=== PATIENT | male | born 1965 | race Caucasian/White ===

== ENCOUNTER 2025-03-25 07:58 | Outpatient (CLI) | payer OTHER, SELFPAY ==
--- OUTSIDE RECORDS SUMMARY | 2025-03-25 08:04 | XMS_ITS | Clinical Summary ---
Author Organization [facility] Address [address] [place] [address] Care Team Providers Care Size Painter Name Role Phone Flaco Peacock MD Primary Care Provider [phone] Allergies No known active allergies Immunizations Immunization Administration Dates Next Due Fluarix Quadrivalent Prefilled Syringe 6 Social History Tobacco Use Types Packs/Day Years Used Date Smoking Tobacco: Never Assessed Sex and Gender Information Value Date Recorded Sex Assigned at Not on file Legal Sex Male 5:20 PM EST Gender Identity Not on file Sexual Orientation Not on file Plan of Treatment Not on file Medical Devices Not on file Care Teams Size Painter Relationship Specialty Start Date End Date Flaco Peacock MD PCP - General Family Medicine 03/08/16
--- OUTSIDE RECORDS SUMMARY | 2025-03-25 08:04 | XMS_ITS | Clinical Summary ---
Author Organization [facility] Address [address] [place] [id number] Care Team Providers Care Generating Station Mechanic Name Role Phone Flaco Peacock MD Primary Care Provider [phone] Allergies No known active allergies Medications Adalimumab (Humira Pen) 40 MG/0.8ML Pen-injector Kit Inject 40 mg under the skin into the appropriate area as directed Every 14 (Fourteen) Days. 2 each 7 3 Active leflunomide (ARAVA) 10 MG tablet Take 1 tablet (10 mg) by mouth 1 (one) time each day. 90 tablet 1 07/10/2023 7:42 AM EDT 3 Active atorvastatin (LIPITOR) 20 MG tablet Take 1 tablet by mouth Daily. 30 tablet 07/10/2023 7:42 AM EDT 4 Active levothyroxine (Euthyrox) 25 MCG tablet Take 1 tablet by mouth Every Morning Before Breakfast. 30 tablet 3 4 Active omeprazole (priLOSEC) 40 MG capsule Take 1 capsule by mouth 2 (Two) Times a Day. 60 capsule 07/25/2023 11:14 AM EDT 4 Active Active Problems Problem Noted Date Diagnosed Date Rheumatoid arthritis with rheumatoid factor 11/14 Social History Tobacco Use Types Packs/Day Years Used Date Smoking Tobacco: Never Assessed Abuse Screen Answer Date Recorded Unsafe at Home or Work/School Not on file Feels Threatened by Someone? Not on file 12/2022 Does Anyone Keep You from Co ntacting Others or Doint Things Outside the Home? Not on file 01/22/2023 Physical Sign of Abuse Present Not on file 1 Housing Stability Answer Date Recorded Current Living Arrangements Not on file 12/2022 Potentially Unsafe Housing Conditions Not on farhad e 01/22/2023 Family and Community Support Answer Cory e Recorded Help with Day-to-Day Activities Not on file 01/22/2023 Lonely or Isolated Not on file 01/22/2023 Employment Answer Date Recorded Do you want help finding or keeping work or a halie b? Not on file 01/22/2023 Disabilities Answer Date Recorded Concentrating, Remembering, or Making Decisions Difficulty Not on file 01/22/2023 Doing Errands Independently Difficulty Not on fi le 01/22/2023 Education Answer Date Recorded Help with school or training? Not on file Preferred Language Not on file 01/22/2023 Sex and Gender Information Value Date Recorded Sex Assigned at Not on file Legal Sex Male 12:03 PM EDT Gender Identity Not on file Sexual Orientation Not on file Last Filed Vital Signs Vital Sign Reading Time Taken Comments Blood Pressure 134/95 04/24/2021 11:14 AM EST Pulse 81 04/24/2021 11:14 AM EST Temperature 37.5 C (99.5 F) 04/24/2021 11:14 AM EST Respiratory Rate 16 04/24/2021 11:14 AM EST Oxygen Saturation 95% 04/24/2021 11:14 AM EST Inhaled Oxygen Concentration - - Weight 95.3 kg (210 lb) 04/24/2021 11:14 AM EST Height 170.2 cm (5' 7 ) 04/24/2021 11:14 AM EST Body Mass Index 32.89 04/24/2021 11:14 AM EST Plan of Treatment Health Maintenance Due Date Last Done Comments COLOGUARD 11/21/2011 COLON CANCER SCREENING 5 YEAR SIGMOIDOSCOPY 11/21/2011 COLONOSCOPY 11/21/2011 COLORECTAL CANCER SCREENING 11/21/2011 CT COLONOGRAPHY 11/21/2011 FECAL OCCULT BLOOD TEST 11/21/2011 FIT Testing (1 year) 11/21/2011 Pneumococcal Vaccine 50+ (1 of 1 - PCV) 2016 ZOSTER VACCINE (1 of 2) 2016 ANNUAL PHYSICAL 04/25/2021 INFLUENZA VACCINE 11/14/2024 03/08/2016 TDAP/TD VACCINES (2 - Td or Tdap) 08/12/2031 022 HEPATITIS C SCREENING Completed 12/15/2021 Goals Goal Patient Goal Type Associated Problems Recent Progress Patient-Stated? Author Specialty Pharmacy General Goal General No Mynor Colby RPH Note: A reduction of flares in joints and on the skin by 50% Increase in mobility and quality of life, with a decrease in body stiffness Insurance [facility] [place] [address] Care Teams Generating Station Mechanic Relationship Specialty Start Date End Date Flaco Peacock MD PCP - General Family Medicine 10/22/18
--- OUTSIDE RECORDS SUMMARY | 2025-03-25 08:05 | XMS_ITS | Referral Summary ---
Author Organization [facility] ([place], [place], [place], [place], [place]) Address [address] [place] [address] Care Team Providers Care Family And Consumer Sciences Professor Name Role Phone Unavailable Primary Care Provider Unavailabl e Allergies No known active allergies Medications atorvastatin (LIPITOR) 20 MG tablet Take 1 tablet (20 mg total) by mouth daily. Active levothyroxine (SYNTHROID, LEVOTHROID) 25 MCG tablet Take 1 tablet (25 mcg total) by mouth Every morning on an empty stomach. Active Social History Tobacco Use Types Packs/Day Years Used Date Smoking Tobacco: Never Smokeless Tobacco: Current Chew Tobacco Cessation:Ready to Q uit: No; Counseling Given: Yes Alcohol Use Standard Drinks/Week Comments Yes 2 (1 standard drink = 0.6 oz pur e alcohol) Food Insecurity Answer Date Recorded Food run out past 12 months Not on file 12/15 Food did not last past 12 months Not on file 01/01/2024 Employment Answer Date Recorded Help finding and keeping a job Not on file 0 01/01/2024 Family and Community Support Answer Cory e Recorded Help with Day to Day Activities Not on file 01/01/2024 Feeling Lonely or Isolated Not on file 12/31 Educational Attainment Answer Date Ole rded Speak language other than American at home Not on file 01/01/2024 Want help with school or training Not on file 01/01/2024 Substance Use Answer Date Recorded Used prescription meds for non-medical reasons N ot on file 01/01/2024 Used illegal drugs past 12 months Not on file 01/01/2024 Sex and Gender Information Value Date Recorded Sex Assigned at Not on file Legal Sex Male 1:28 PM CDT Gender Identity Not on file Sexual Orientation Not on file Last Filed Vital Signs Vital Sign Reading Time Taken Comments Blood Pressure 150/84 01/08/2024 3:01 PM EDT Pulse 70 01/08/2024 3:01 PM EDT Temperature 36.9 C (98.4 F) 01/01/2024 1:52 PM EDT Respiratory Rate 16 01/01/2024 1:52 PM EDT Oxygen Saturation 97% 01/08/2024 3:01 PM EDT Inhaled Oxygen Concentration - - Weight 93.3 kg (205 lb 9.6 oz) 01/08/2024 3:01 P M EDT Height 170.2 cm (5' 7 ) 01/08/2024 3:01 PM EDT Body Mass Index 32.2 01/08/2024 3:01 PM EDT Plan of Treatment Not on file Insurance BLUE CROSS/BLUE SHIELD
--- OUTSIDE RECORDS SUMMARY | 2025-03-25 08:05 | XMS_ITS | Clinical Summary ---
Author Organization [employer] ([place], [place], [place], [place], [place]) Address [address] [place] [address] Care Team Providers Care Cuffer Name Role Phone Unavailable Primary Care Provider Unavailabl e Allergies No known active allergies Medications atorvastatin (LIPITOR) 20 MG tablet Take 1 tablet (20 mg total) by mouth daily. Active levothyroxine (SYNTHROID, LEVOTHROID) 25 MCG tablet Take 1 tablet (25 mcg total) by mouth Every morning on an empty stomach. Active Family History Medical History Relation Name Comments Heart attack Paternal Grandmother Heart attack Paternal Uncle Relation Name Status Comments Paternal Grandmother Paternal Uncle Social History Tobacco Use Types Packs/Day Years [...] Date Ole rded Speak language other than Italian at home Not on file 01/01/2024 Want [...] 01/08/2024 3:01 PM EDT Plan of Treatment Health Maintenance Due Date Last Done Comments CT Colonography 1966 Colonoscopy 1966 Colorectal Cancer Screening 1966 FOBT/FIT 1966 Fit-DNA (Cologuard) 1966 Sigmoidoscopy 1966 Depression Screening (12+) 1978 HIV Screening 1981 Hepatitis C Screening 1984 Lipid Panel 2001 Pneumococcal 50+ years (1 of 1 - PCV) 2016 Shingles Vaccine (Zoster) (1 of 2) 2016 COVID-19 VACCINE (1 - season) 2024 Influenza Vaccine (#1) 2024 Tobacco Cessation Counseling and Screening (12+) 01/07/2025 01/08/2024 DTAP/TDAP/TD VACCINES (3 - Td or Tdap) 08/12/2031, 01/03/2010 Insurance BLUE CROSS/BLUE SHIELD
--- OUTSIDE RECORDS SUMMARY | 2025-03-25 08:05 | XMS_ITS | Clinical Summary ---
Author Organization [facility] Address [address] [place] [address] Care Team Providers Care Window Shade Cloth Sewer Name Role Phone Aneta Yanez DO Primary Care Provider [phone] Allergies No known active allergies Medications omeprazole (PriLOSEC) [address] capsule Take 1 capsule (40 mg) by mouth 1 (one) time each day. Do not crush or chew. Active atorvastatin (Lipitor) 20 MG tablet 04/14/2022 Active levothyroxine (Synthroid, Levoxyl) 25 MCG tablet 04/14/2022 Active sertraline (Zoloft) 50 MG tablet 04/14/2022 Active sucralfate (Carafate) 1 g tablet 04/21/2022 Active Adalimumab (Humira) 40 MG/0.8ML Auto-injector KitIndications: Seropositive rheumatoid arthritis (CMS/HCC) Inject 1 each under the skin every 14 days. 2 each 5 10/14/2024 Active leflunomide (Arava) 10 MG tabletIndicatio ns:Seropositive rheumatoid arthritis (CMS/HCC) Take 1 tablet by mouth daily. 90 tablet 2 10/15/2024 Active celecoxib (CeleBREX) 100 MG capsule Take 1 capsule by mouth 2 times a day. 60 capsule 3 01/21/2025 Active Active Problems Problem Noted Date Diagnosed Date Seropositive rheumatoid arthritis 11/02/2023 Degenerative joint disease involving multiple halie ints 11/02/2023 Rheumatoid arthritis involvi ng multiple sites with positive rheumatoid factor 05/11/2022 Carpal tunnel syndrome, bilateral 11/03/2021 Resolved Problems Problem Noted Date Diagnosed Date Resolved Date High risk medication use 11/02/2023 Encounters Date Type Department Care Team Description 01/21/2025 [facility]ill [facility] [address] [place] [address] Tahmina Smith MD from Last 3 Months Immunizations Immunization Administration Dates Next Due Hep A, Adult 03/30/2018,02/18/2018 Influenza, seasonal, injectable 05/09/2017,03/31,02/07/2010 Tdap 08/11/2021,01/03/2010 Family History Medical History Relation Name Comments No Known Problems Father No Known Problems Mother Relation Name Status Comments Father Mother Social History Tobacco Use Types Packs/Day Years Used Date Smoking Tobacco: Never Smokeless Tobacco: Former Chew Tobacco Cessation:Counseling Given: Not Answered Comments:dip Alcohol Use Standard Drinks/Week Comments Yes 14 (1 standard drink = 0.6 oz pu re alcohol) PHQ-2 Answer Date Recorded Patient Health Questionnaire-2 Score 0 05/09/2024 PHQ-2A Answer Date Recorded Patient Health Questionnaire-2 Score 0 03/20/2023 Sex and Gender Information Value Date Recorded Sex Assigned at Not on file Legal Sex Male 8:37 PM EDT Gender Identity Not on file Sexual Orientation Not on file Last Filed Vital Signs Vital Sign Reading Time Taken Comments Blood Pressure 150/90 10/14/2024 3:09 PM EDT Pulse 60 10/14/2024 3:09 PM EDT Temperature 36.8 C (98.2 F) 10/14/2024 3:09 PM EDT Respiratory Rate 16 11/02/2023 1:36 PM EDT Oxygen Saturation 96% 10/14/2024 3:0 9 PM EDT Inhaled Oxygen Concentration - - Weight 94.3 kg (207 lb 14.3 oz) 10/14/2024 3:09 PM EDT Height 170.2 cm (5' 7 ) 10/14/2024 3:09 PM EDT PT REPORTED Body Mass Index 32.56 10/14/2024 3:09 PM EDT Plan of Treatment Upcoming Encounters Date Type Department Care Team (Late st Contact Info) Description 04/21/2025 1:00 PM EST Office Visit [facility] [address], [address] [place] [address] Tahmina Smith MD [address] [place] [address] Health Maintenance Due Date Last Done Comments [facility]-HIV Screening 1966 [facility]-Infant/Child/Adol SDOH Screenings 1966 [facility]G-BDRHO-15 Vaccine (#1) 11/21/1971 [facility]- SDOH Screenings 1984 [facility]-Adult SDOH Screenings 1984 [facility]-Hepatitis B Vaccines (1 of 3 - 19+ 3-dose series) 1985 [facility]-Zoster Vaccines (1 of 2) 1985 CT Colonography 11/21/2011 Colonoscopy 11/21/2011 FIT-DNA 11/21/2011 FIT 11/21/2011 FOBT 11/21/2011 Sigmoidoscopy 11/21/2011 [facility]-Colorectal Cancer Screening 11/21/2011 [facility]-Pneumococcal Vaccine: 50+ Years (1 of 1 - PCV) 2016 [facility]-Influenza Vaccine (#1) 12/15/202405/09, 03/31/2015, 02/07/2010 [facility]-Depression Screening 05/09/2025 05/09/2024 [facility]-DTaP,Tdap,and Td Vaccines (3 - Td or Tdap) 08/12/2031 08/11/2021, 01/03/2010 [facility]-Hepatitis A Vaccines Aged Out 03/30/2018, 08/2017 No longer eligible based on patient's age to complete this topic [facility]-Hepatitis C Screening Completed 12/15/2021 [facility]-Obesity Intervention Completed 025, 05/09/2024, 11/02/2023, Additional history exists HPV Vaccines Aged Out No longer eligi ble based on patient's age to complete this topic [facility]-HIB Vaccines Aged Out No longer e ligible based on patient's age to complete this topic [facility]-IPV Vaccines Aged Out No longer e ligible based on patient's age to complete this topic [facility]-Rotavirus Vaccines Aged Out No lo nger eligible based on patient's age to complete this topic Procedures Procedure Name Priority Date/Time Associated Diagnosis Comments ACUTE HEPATITIS PANEL Routine 12/15/2021 1:33 PM EDT High risk medication use from Last 3 Months or Most Recently Relevant to Health Maintenance Results * Hepatitis panel, acute (12/15/2021 1:33 PM EDT) Hepatitis B Surf Antigen Negative Negative 12/15/2021 3:58 PM EDT [facility] Hepatitis C Antibody Negative Negative 12/15/2021 3:58 PM EDT [facility] Hepatitis A Antibody IgM Negative Negative 12/15/2021 3:58 PM EDT [facility] Hepatitis B Core Antibody IgM Negative Negative 12/15/2021 3:58 PM EDT [facility] Blood Venous blood specimen / Unknown Venipuncture / Unknown 12/15/2021 1:33 PM EDT 12/15/2021 1:33 PM EDT Yudy Back MD LAB BLOOD ORDERABLES Fi nal Result [facility] [address] [place] [id number] from Last 3 Months or Most Recently Relevant to Health Maintenance Insurance [facility] [id number] Care Teams Window Shade Cloth Sewer Relationship Specialty Start Date End Date Aneta Yanez DO [address], Located Within [facility] [address] [place] [address] [facility] - General 08/12/24
--- NOTE | 2025-03-25 08:10 | XR_ITS ---
FINAL REPORT CLINICAL HISTORY: left ankle pain FINDINGS: LEFT ANKLE Three views demonstrate no acute fracture or dislocation. There is a well-corticated ossific density inferior to the medial malleolus measuring 7 mm likely related to old trauma. There is an 8 mm os trigonum. A moderate plantar spur is noted. The visualized joint spaces are normally aligned. The soft tissues are unremarkable. IMPRESSION: No acute bony abnormality. Reviewed, Interpreted and Dictated by Bryon Betts MD Transcribed by Megan Guerra Authenticated and [facility]
== END 2025-03-25 23:59 ==
LOC: RAD 08:02
PROVIDERS: PCP Family Medicine; Visit Provider Orthopaedic Surgery
DX: M77.32 Calcaneal spur, left foot (principal); R93.6 Abnormal findings on diagnostic imaging of limbs
CPT/HCPCS: 73610